=== PATIENT | male | born 1940 | race Caucasian/White ===

== ENCOUNTER 2024-08-14 09:58 | Outpatient (CLI) | payer MEDICARE ==
[~2024-08-14 09:58] MED LIST: Iopamidol 300 61% 100 ML VIAL FS ONE; Magnevist 469MG/ML 20 ML VIAL ONE
== END 2024-08-14 09:59 | disposition home or self-care (01) ==
LOC: CSHMRI 09:58
PROVIDERS: ATTEND Internal Medicine Hematology & Oncology
DX: C20 Malignant neoplasm of rectum (principal); R91.1 Solitary pulmonary nodule; K76.9 Liver disease, unspecified; Z93.3 Colostomy status
CPT/HCPCS: 36415; 71260; 72197; 74160; 82565

== ENCOUNTER 2025-05-05 09:29 | Outpatient (CLI) | payer MEDICARE ==
[~2025-05-05 09:29] MED LIST changes: -Iopamidol 300 61% 100 ML VIAL FS ONE; +Iopamidol-370 76% 500 ML MDV (1 ML CHARGE) ONE; -Magnevist 469MG/ML 20 ML VIAL ONE
[2025-05-05 10:32] LABS: Estimated GFR - POC 49.0
== END 2025-05-05 09:30 | disposition home or self-care (01) ==
LOC: CSHCT 09:29
PROVIDERS: ATTEND Internal Medicine Hematology & Oncology
DX: C20 Malignant neoplasm of rectum (principal); K62.9 Disease of anus and rectum, unspecified
CPT/HCPCS: 36415; 71260; 72197; 74177; 82565; Q9967